=== PATIENT | female | born 1990 | race Caucasian/White ===

== ENCOUNTER → 2022-06-08 | Outpatient (CLI) | payer OTHER ==
[~2022-06-08] MED LIST: LOW-OGESTREL 281 TAB PO
== END ==
LOC: DIA.ED
DX: O24.419 Gestational diabetes mellitus in pregnancy, unspecified control (principal)
CPT/HCPCS: G0108

== ENCOUNTER 2022-08-03 01:02 | Inpatient (IN) | payer OTHER ==
[~2022-08-03] VITALS: Ht 170.2 cm; Wt 88.3 kg
[2022-08-03] VITALS (44 sets, daily range): BP systolic 118–185; BP diastolic 57–104; PULSE 70–128; TEMP 97.9–98.8
--- NOTE | 2022-08-03 01:10 | NUR ---
Ambulatory to unit for labor assessment, accompanied by spouse. Pt reports "I had a big gush of fluid @ 2330, and I still feel wet" Oriented to room, monitor, plan of care. SVE with no fluid noted, amniotrace with no color change. SVE as noted.
[2022-08-03] MEDS ORDERED: PRENATAL TABLET PO (02:02)
--- NOTE | 2022-08-03 02:15 | NUR ---
Pt states "I had another gush of fluid" SVE with free fluid noted, amniotrace +. Labor and delivery care plan reviewed with pt and spouse. Questions invited and answered.
[2022-08-03 03:23] LABS: BASO % 0.5 % (0.0-2.0); EOS # 0.1 K/mm3 (0.0-0.7); EOS % 0.6 % (0.0-4.0); GRAN # 4.9 K/mm3 (1.4-6.5); GRAN % 56.4 % (42.2-75.2); HEMATOCRIT 38.7 % (37.0-47.0); HEMOGLOBIN 12.7 g/dl (12.5-16.0); LYMPH # 2.8 K/mm3 (1.2-3.4); LYMPH % 32.7 % (20.0-51.0); MEAN CELL VOLUME 87 fl (80.0-100.0); MEAN CORPUSCULAR HEMOGLOBIN 29 pg (27-31); MEAN CORPUSCULAR HGB CONC 33 g/dl (33.0-37.0); MEAN PLATELET VOLUME 10.6 fl (7.4-10.4); MONO # 0.7 K/mm3 (0.1-0.6); MONO % 8.5 % (1.7-9.3); PLATELET COUNT 280 K/mm3 (130-400); RED BLOOD COUNT 4.44 M/mm3 (4.10-5.30); REDCELL DISTRIBUTION WIDTH-CV 12.9 % (11.5-14.5)
[2022-08-03 03:39] LABS: ALBUMIN 3.1 gm/dL (3.5-5.0); BILIRUBIN,TOTAL 0.4 mg/dL (0.2-1.2); CALCIUM 9.5 mg/dL (8.4-10.2); CREATININE, serum 0.78 mg/dL (0.57-1.11); POTASSIUM 4.1 mmol/L (3.5-4.5); TOTAL PROTEIN 6.6 gm/dL (6.2-8.1)
--- NOTE | 2022-08-03 04:30 | NUR ---
Difficulty maintaining FHR tracing r/t position. to R wedge.
--- NOTE | 2022-08-03 10:17 | NUR ---
1004-PT SITTING FOR EPIDURAL. RN UNABLE TO CONTINUOSLY MONITOR FHR. IV BOLUS RUNNING, PULSE OX ON, AND TIMEOUT COMPLETED. 1010-SINGLE SHOT ADMINISTERED. 1017-PT LAYING DOWN AFTER EPIDURAL. PT TOLERATED PROCEDURE WELL. MONITORS ADJUSTED. CATEGORY 1 STRIP AT THIS TIME. VS WNL.
[2022-08-04 00:30] VITALS: BP 114/62; PULSE 75; TEMP 97.5
[2022-08-04 04:30] VITALS: BP 130/83; PULSE 93; TEMP 97.5
[2022-08-04] MEDS ORDERED: MOTRIN 800800 MG/TAB PO (07:56)
[2022-08-04 08:47] VITALS: BP 126/80; PULSE 81; TEMP 97.6
[2022-08-04 12:49] VITALS: BP 122/75; PULSE 86; TEMP 97.6
[2022-08-04 16:40] VITALS: BP 125/68; PULSE 79; TEMP 98.7
[2022-08-04 20:50] VITALS: BP 120/68; PULSE 81; TEMP 97.8
[2022-08-05 07:30] VITALS: BP 122/82; PULSE 78; TEMP 97.8
--- NOTE | 2022-08-05 09:14 | NUR ---
Initial visit; Parents thanked Glue Reel Operator for offering congratulations and God's blessings for the of their daughter and for offering a special blessing for their daughter.
== END 2022-08-05 14:15 | disposition home or self-care (01) | DRG 806 ==
LOC: LDRO 01:02 → LDR 01:37 → LDRO 02:29 → LDR 02:30 → OB 02:30
PROVIDERS: ADMIT Obstetrics & Gynecology
PROC: 10E0XZZ Delivery of Products of Conception, External Approach (ICD-10-PCS; principal; 2022-08-03)
PROC: 0KQM0ZZ Repair Perineum Muscle, Open Approach (ICD-10-PCS; 2022-08-03)
DX: O24.420 Gestational diabetes mellitus in childbirth, diet controlled (principal); O10.92 Unspecified pre-existing hypertension complicating childbirth; Z37.0 Single live birth; Z3A.37 37 weeks gestation of pregnancy; O69.81X0 Labor and delivery complicated by cord around neck, without compression, not applicable or unspecified; O70.1 Second degree perineal laceration during delivery; K21.9 Gastro-esophageal reflux disease without esophagitis; O99.62 Diseases of the digestive system complicating childbirth; Z53.29 Procedure and treatment not carried out because of patient's decision for other reasons
CPT/HCPCS: J2590; J2795; J7120